=== PATIENT | male | born 1995 | race African-American/Black ===

== ENCOUNTER 2016-12-06 11:04 | Emergency (ER) | payer OTHER ==
[2016-12-06 11:38] VITALS: BP 146/113; PULSE 74; TEMP 98.1; BMI 33.0
[2016-12-06] MEDS ORDERED: DEXAMETHASONE SOD PHOSPHATE 10 MG/1 ML VIAL IM ONE (12:59)
[2016-12-06] MEDS ORDERED: AMOXICILLIN 500 MG CAPSULE (FP) PO ONE (12:59)
--- NOTE | 2016-12-06 13:27 | PDOC ---
History of Present Illness - General Chief Complaint: Sore Throat Stated Complaint: THROAT PAIN Time Seen by Provider: 12/06/16 12:44 History Source: Patient Exam Limitations: No Limitations - History of Present Illness Initial Comments: 12/06/16 13:22 CC reoccuring swelling of uvula post heavy drinking last night b; getting better Timing/Duration: 1-3 hours, changing over time Severity: mild Modifying Factors: improves with: medication Associated Symptoms: denies: denies symptoms Past History - Past Medical History Allergies/Adverse Reactions: Allergies Allergy/AdvReac Type Severity Reaction Status Date / Time No Known Allergies Allergy Verified 12/06/16 11:35 Other medical history: DENIES. - Immunization History Immunization Up to Date: Yes - Psycho/Social/Smoking Cessation Hx Anxiety: No Suicidal Ideation: No Smoking Status: No Smoking History: Never smoked Number of Cigarettes Smoked Daily: 0 Hx Alcohol Use: No Substance Use Type: None Review of Systems - Review of Systems Constitutional: Yes: Malaise. No: Chills, Fever HEENTM: Yes: Mouth Swelling. No: Blurred Vision, Double Vision, Nose Pain, Nose Congestion, Throat Swelling, Difficulty Swallowing Respiratory: No: Symptoms reported, Cough Cardiac (ROS): No: Symptoms Reported *Physical Exam - Vital Signs Last Vital Signs Temp Pulse Resp BP Pulse Ox 98.1 F 74 18 146/113 99 12/06/16 11:35 12/06/16 11:35 12/06/16 11:35 12/06/16 11:35 12/06/16 11:35 - Physical Exam General Appearance: Yes: Appropriately Dressed. No: Apparent Distress HEENT: positive: TMs Normal, Other ( only mild STS to distal uvula noted; no other STS) Neck: positive: Supple. negative: Tender, Rigid, Stridor, Lymphadenopathy (R), Lymphadenopathy (L), Rigidity Respiratory/Chest: positive: Normal Breath Sounds. negative: Lungs Clear, Rhonchi, Stridor, Wheezing Cardiovascular: positive: Regular Rhythm, Regular Rate ED Treatment Course - Medications Given in the ED: ED Medications Discontinued Medications Generic Name Dose Route Start Last Admin Trade Name Freq PRN Reason Stop Dose Admin Amoxicillin 500 mg 12/06/16 12:59 12/06/16 13:11 Amoxicillin - PO 12/06/16 13:00 500 mg ONCE ONE Administration Dexamethasone Sodium Phosphate 10 mg 12/06/16 12:59 12/06/16 13:11 Decadron Injection - IM 12/06/16 13:00 10 mg ONCE ONE Administration Medical Decision Making - Medical Decision Making 12/06/16 13:25 amox in ED and decadron; will start benadryl and amox at home *DC/Admit/Observation/Transfer Diagnosis at time of Disposition: Angioedema Qualifiers: Encounter type: initial encounter Qualified Code(s): T78.3XXA - Angioneurotic edema, initial encounter - Discharge Dispostion Disposition: HOME Condition at time of disposition: Stable Admit: No - Patient Instructions Additional Instructions: please return immediately if swelling returns - Post Discharge Activity Work/School Note: Back to Work
== END 2016-12-06 13:31 | disposition home or self-care (01) ==
LOC: JERFT 11:04
PROC: 3E0233Z Introduction of Anti-inflammatory into Muscle, Percutaneous Approach (ICD-10-PCS; principal; 2016-12-06)
DX: T78.3XXA Angioneurotic edema, initial encounter (principal)
CPT/HCPCS: 99281-25

== ENCOUNTER 2017-05-17 16:44 | Emergency (ER) | payer OTHER ==
[2017-05-17 17:01] VITALS: BP 155/90; PULSE 75; TEMP 98; BMI 36.3
[2017-05-17] MEDS ORDERED: ONDANSETRON *ODT* 4 MG TABLET SL ONE (17:33)
[2017-05-17] MEDS ORDERED: MAG HYDROX/AL HYDROX/SIMETH 30 ML UNIT-DOSE CUP PO ONE (17:33)
[2017-05-17] MEDS ORDERED: ALBUTEROL SO4 2.5/IPRATROPIUM 0.5 INH SOL 3 ML VIAL.NEB. NEB ONE ×2 (17:34→17:53)
--- NOTE | 2017-05-17 17:37 | PDOC ---
History of Present Illness - General Chief Complaint: Cold Symptoms Stated Complaint: COUGH Time Seen by Provider: 05/17/17 17:22 History Source: Patient Exam Limitations: No Limitations - History of Present Illness Initial Comments: 05/17/17 17:35 21 yr male no medical history c/o cough for months with blood tinged sputum yesterday, pt also with nausea vomiting and right sided abd pain. Pt denies fever or chills. no back pain. Pt admits occasional marijuana, hooka, alcohol use. no medical or surgical history. 05/18/17 12:33 Severity: reports: mild Past History - Past Medical History Allergies/Adverse Reactions: Allergies Allergy/AdvReac Type Severity Reaction Status Date / Time No Known Allergies Allergy Verified 05/17/17 17:01 Home Medications: Ambulatory Orders Albuterol Sulfate Inhaler - [Ventolin HFA Inhaler -] 1 - 2 inh PO Q4H #1 inhaler 05/17/17 Azithromycin [Zithromax 250mg Tablets -] 250 mg PO UTDICT #6 tab 05/17/17 Other medical history: denies - Immunization History Immunization Up to Date: Yes - Psycho/Social/Smoking Cessation Hx Anxiety: No Suicidal Ideation: No Smoking Status: No Smoking History: Former smoker Have you smoked in the past 12 months: Yes Number of Cigarettes Smoked Daily: 0 Information on smoking cessation initiated: Yes 'Breaking Loose' booklet given: 05/17/17 Hx Alcohol Use: No Drug/Substance Use Hx: No Substance Use Type: None Respiratory Specific PMHX - Complaint Specific PMHX Angina: No Bronchitis: No Pneumonia: No Pulmonary Embolus: No TB (Tuberculosis): No Review of Systems - Review of Systems Able to Perform ROS?: Yes Is the patient limited [place]i proficient: No Constitutional: No: Symptoms Reported HEENTM: No: Symptoms Reported Respiratory: Yes: Cough ABD/GI: Yes: Nausea, Vomiting *Physical Exam - Vital Signs Last Vital Signs Temp Pulse Resp BP Pulse Ox 98 F 75 18 155/90 99 05/17/17 16:59 05/17/17 16:59 05/17/17 16:59 05/17/17 16:59 05/17/17 16:59 - Physical Exam General Appearance: Yes: Nourished, Appropriately Dressed HEENT: positive: EOMI, NAEEM, Tonsillar Erythema. 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 labs are WNL will refer to GI for follow up meds for bronchitis no evidence of pneumonia CURB 65 score is 0 points low risk group pt understands the follow up procedures and all questions asked and answered 05/18/17 12:40 *DC/Admit/Observation/Transfer Diagnosis at time of Disposition: Bronchitis - Discharge Dispostion Disposition: HOME Condition at time of disposition: Improved - Prescriptions Prescriptions: Albuterol Sulfate Inhaler - [Ventolin HFA Inhaler -] 1 - 2 inh PO Q4H #1 inhaler Azithromycin [Zithromax 250mg Tablets -] 250 mg PO UTDICT #6 tab - Referrals Referrals: [facility] ([facility]) [Outside] - Patient Instructions Printed Discharge Instructions: DI for Acute Bronchitis Additional Instructions: drink pleanty of fluids avoid any smoking of any kind this can make symptoms worse take the medications as prescribed also take motrin (over the cunter advil, ibuprofen or motrin) as prescribed for pain follow with [facility] clinic for further evaluation and for follow up in 1-2 weeks Return if any worsening symptoms
[2017-05-17] MEDS ORDERED: ONDANSETRON *ODT* 4 MG TABLET ONE (17:53)
[2017-05-17] MEDS ORDERED: MAG HYDROX/AL HYDROX/SIMETH 30 ML UNIT-DOSE CUP ONE (17:53)
[2017-05-17 17:57] LABS: BASOPHIL 0.5 % (0-2.0); EOSINOPHIL 2.2 % (0-4.5); MCH 31.5 pg (25.7-33.7); MCHC 33.9 g/dl (32.0-35.9); MEAN PLT VOLUME 9.1 fl (7.5-11.1); NEUTROPHILS 54.3 % (42.8-82.8); PLATELET COUNT 216 K/MM3 (134-434); RDW 13.8 % (11.9-15.9); WHITE BLOOD COUNT 8.3 K/mm3 (4.0-10.0)
[2017-05-17 18:31] LABS: URINE APPEARANCE CLEAR; URINE BILIRUBIN NEGATIVE (NEGATIVE); URINE BLOOD NEGATIVE (NEGATIVE); URINE COLOR LT. YELLOW; URINE GLUCOSE (UA) NEGATIVE (NEGATIVE); URINE KETONE NEGATIVE (NEGATIVE); URINE LEUK ESTERASE NEGATIVE (NEGATIVE); URINE NITRITE NEGATIVE (NEGATIVE); URINE PROTEIN NEGATIVE (NEGATIVE); URINE UROBILINOGEN 0.2 mg/dL (0.2-1.0)
[2017-05-17 19:03] LABS: ALBUMIN 3.7 g/dl (3.4-5.0); AMYLASE 43 U/L (25-115); ANION GAP 9 (8-16); BILIRUBIN,TOTAL 0.4 mg/dL (0.2-1.0); CALCIUM 9.1 mg/dL (8.5-10.1); CO2 28 mmol/L (21-32); GLUCOSE,RANDOM 117 mg/dL (74-106); SGOT/AST 22 U/L (15-37); SGPT/ALT 52 U/L (12-78); TOT PROT 6.8 g/dl (6.4-8.2)
[2017-05-17 19:04] LABS: ALK PHOS 80 U/L (45-117)
== END 2017-05-17 19:27 | disposition home or self-care (01) ==
LOC: JERFT 16:44
PROC: 3E0F7GC Introduction of Other Therapeutic Substance into Respiratory Tract, Via Natural or Artificial Opening (ICD-10-PCS; principal; 2017-05-17)
DX: J40 Bronchitis, not specified as acute or chronic (principal); Z87.891 Personal history of nicotine dependence
CPT/HCPCS: 36415; 71020-TC; 80053; 81003; 82150; 83690; 85025; 99281-25

== ENCOUNTER 2019-01-02 11:06 | Emergency (ER) | payer OTHER ==
[2019-01-02 11:14] VITALS: BMI 33.0
[2019-01-02] MEDS ORDERED: LIDOCAINE 5% TOPICAL PATCH ONE (13:38)
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
[2019-01-02] MEDS ORDERED: LIDOCAINE 5% TOPICAL PATCH TP ONE (14:48)
[2019-01-02 15:34] VITALS: BP 148/81; PULSE 74; TEMP 98.8
[2019-01-02] MEDS ORDERED: LIDOCAINE PATCH REMOVAL MC SCH (22:00)
== END 2019-01-02 15:34 | disposition home or self-care (01) ==
LOC: JER 11:06
DX: S22.32XA Fracture of one rib, left side, initial encounter for closed fracture (principal); S20.211A Contusion of right front wall of thorax, initial encounter; V43.62XA Car passenger injured in collision with other type car in traffic accident, initial encounter; W22.12XA Striking against or struck by front passenger side automobile airbag, initial encounter; Y92.414 Local residential or business street as the place of occurrence of the external cause; Y93.89 Activity, other specified; Y99.8 Other external cause status
CPT/HCPCS: 71250-TC; 74176-TC; 99281-25

== ENCOUNTER 2021-05-30 14:43 | Emergency (ER) | payer OTHER ==
[2021-05-30 15:09] VITALS: BP 129/84; PULSE 83; TEMP 98; BMI 27.9
[2021-05-30] MEDS ORDERED: DIPHTH,PERTUSS(ACELL),TET 0.5 ML DISP.SYRIN IM ONE (15:31)
[2021-05-30] MEDS ORDERED: ONDANSETRON *ODT* 4 MG TABLET SL ONE (15:44)
[2021-05-30] MEDS ORDERED: IBUPROFEN 400 MG TABLET (FP) PO ONE (16:30)
== END 2021-05-30 17:09 | disposition home or self-care (01) ==
LOC: JERFT 14:43
PROC: 0HQFXZZ Repair Right Hand Skin, External Approach (ICD-10-PCS; principal; 2021-05-30)
PROC: 2W3CX1Z Immobilization of Right Lower Arm using Splint (ICD-10-PCS; 2021-05-30)
PROC: 3E0234Z Introduction of Serum, Toxoid and Vaccine into Muscle, Percutaneous Approach (ICD-10-PCS; 2021-05-30)
DX: S63.501A Unspecified sprain of right wrist, initial encounter (principal); S61.411A Laceration without foreign body of right hand, initial encounter; V89.2XXA Person injured in unspecified motor-vehicle accident, traffic, initial encounter; Y92.9 Unspecified place or not applicable
CPT/HCPCS: 73130-TC-RT-FY; 90715; 99284-25; Q0162

== ENCOUNTER 2021-06-24 14:52 | Emergency (ER) | payer OTHER ==
[2021-06-24 15:05] VITALS: BP 107/67; PULSE 62; TEMP 98.3; BMI 27.7
== END 2021-06-24 16:24 | disposition home or self-care (01) ==
LOC: JERFT 14:52
DX: Z48.02 Encounter for removal of sutures (principal)
CPT/HCPCS: 99281-25

== ENCOUNTER 2024-03-24 22:40 | Emergency (ER) | payer SELFPAY ==
[2024-03-24 22:46] VITALS: BP 133/63; PULSE 93; RESP 20; TEMP 99; BMI 29.0
[2024-03-25] MEDS ORDERED: IBUPROFEN 600 MG TABLET (FP) PO ONE (00:23)
[2024-03-25] MEDS ORDERED: DIPHTH,PERTUSS(ACELL),TET 0.5 ML DISP.SYRIN IM ONE (00:23)
[2024-03-25] MEDS ORDERED: ACETAMINOPHEN 325 MG TABLET (FP) ONE (00:23)
[2024-03-25] MEDS: IBUPROFEN 600 MG TABLET (FP) PO ONE (00:27)
[2024-03-25] MEDS: ACETAMINOPHEN 500 MG TABLET (FP) PO ONE (00:28)
[2024-03-25] MEDS: DIPHTH,PERTUSS(ACELL),TET 0.5 ML DISP.SYRIN IM ONE (00:28)
== END 2024-03-25 02:23 | disposition home or self-care (01) ==
LOC: JER 22:40
PROC: 0XQHXZZ Repair Left Wrist Region, External Approach (ICD-10-PCS; principal; 2024-03-24)
PROC: 2W3KX1Z Immobilization of Left Finger using Splint (ICD-10-PCS; 2024-03-24)
PROC: 3E0234Z Introduction of Serum, Toxoid and Vaccine into Muscle, Percutaneous Approach (ICD-10-PCS; 2024-03-25)
DX: S61.512A Laceration without foreign body of left wrist, initial encounter (principal); S63.619A Unspecified sprain of unspecified finger, initial encounter; W26.0XXA Contact with knife, initial encounter; W22.8XXA Striking against or struck by other objects, initial encounter; Y93.G3 Activity, cooking and baking; Z23 Encounter for immunization
CPT/HCPCS: 73090-TC-LT-FY; 73110-TC-LT-FY; 73130-TC-LT-FY; 90715; 99284-25

== ENCOUNTER 2024-04-20 01:18 | Emergency (ER) | payer SELFPAY ==
[2024-04-20 01:23] VITALS: BP 100/72; PULSE 76; RESP 18; TEMP 98.1; BMI 29.0
== END 2024-04-20 01:41 | disposition home or self-care (01) ==
LOC: JER 01:18
DX: Z48.02 Encounter for removal of sutures (principal)
CPT/HCPCS: 99281-25